=== PATIENT | male | born 1995 | race Caucasian/White ===

== ENCOUNTER 2018-01-06 15:04 | Inpatient (IN) | payer BC, OTHER ==
[~2018-01-06] VITALS: Ht 177.8 cm; Wt 59.0 kg
[2018-01-08] MEDS ORDERED: MAGNESIUM HYDROXIDE 30 ML LIQUID UDC PO PRN (11:00)
[2018-01-08] MEDS ORDERED: CLONIDINE HCL 0.1 MG TABLET PO PRN (11:00)
[2018-01-08] MEDS ORDERED: LORAZEPAM 1 MG TABLET PO PRN (11:00)
[2018-01-08] MEDS ORDERED: ONDANSETRON 4 MG/2 ML VIAL IM PRN (11:00)
[2018-01-08] MEDS ORDERED: LORAZEPAM 2 MG/1 ML VIAL IM PRN (11:00)
[2018-01-08] MEDS ORDERED: THIAMINE HCL 200 MG/2 ML VIAL IM ONE (11:00)
[2018-01-08] MEDS ORDERED: MIRALAX 17 GM POWD.PACK PO PRN (11:00)
[2018-01-08] MEDS ORDERED: LOPERAMIDE HCL 2 MG CAPSULE PO PRN ×2 (11:00)
[2018-01-08] MEDS ORDERED: MAG HYDROX/AL HYDROX/SIMETH 30 ML LIQUID UDC PO PRN (11:00)
--- NOTE | 2018-01-08 11:10 | NUR ---
Admissions Note 22 year old male admitted to [facility] for withdrawal from alcohol. Client is oriented to unit, educated about protocols and how to work TV and call light in his room. Weight: 130 pounds. Height: 5'10" CIWA: 4 Client appears anxious, clammy skin, superficial abrasion to R cheek, client stated, I pick at my skin sometimes. Dry scab on R sharma, no treatment needed, encourage client to avoid picking at site. Bilateral lung clear on auscultation, abdomen soft, non-tender, no edema noted. Clients voice is soft, he avoids eye contact. Client has NKA. Regular diet ordered. Full code status ordered. Client denies any history of seizures, but reports history of withdrawal-induced delirium. LBM was 01/07/08, medium/brown/soft. He gives verbal consent for FLU/ PNA vaccine. He gives verbal consent for HIV. Client states that he lives with his parents and younger brother. He reports 27 prior treatments, last been in a residential treatment for like 10 days, and relapse upon discharge two months ago. His longest period of sobriety is for the last four months when he was 17 y/o, cant remember exact date. Dr Dunne assessed client. Urine not collected yet. All safety measures instituted. Univeral precaution. Call light within reach. Will continue to monitor.
[2018-01-08] MEDS ORDERED: EMTR1TAB6 PO (11:14)
[2018-01-08] MEDS ORDERED: DOLU50TA PO (11:16)
[2018-01-08] MEDS: ACETAMINOPHEN 325 MG TABLET PO PRN (11:39)
--- NOTE | 2018-01-08 11:40 | NUR ---
PRN Clonidine 0.1mg PO for BP 141/86, Tylenol 650mg PO for pain on bilateral knees, ankles 6/10. Call light within reach.
[2018-01-08 12:00] VITALS: BP 129/86
[2018-01-08 12:08] LABS: BILIRUBIN,TOTAL 0.7 mg/dL (0.2-1.0); CREATININE 1.3 mg/dL (0.6-1.3); MAGNESIUM 1.9 mg/dL (1.8-2.4); POTASSIUM 3.5 mmol/L (3.5-5.1)
[2018-01-08 12:38] LABS: BASOPHILS % (AUTO) 0.4 % (0.0-2.0); EOSINOPHILS # (AUTO) 0.2 K/uL (0.0-0.7); EOSINOPHILS % (AUTO) 4.3 % (0.0-7.0); HEMOGLOBIN 15.9 g/dL (12.5-16.3); LYMPHOCYTES # (AUTO) 1.5 K/uL (20.0-40.0); LYMPHOCYTES % (AUTO) 26.9 % (20.5-51.5); MEAN CORPUSCULAR HEMOGLOBIN 30.9 uug (23.8-33.4); MEAN CORPUSCULAR HGB CONC 35 g/dL (32.5-36.3); MEAN CORPUSCULAR VOLUME 89.2 fL (73.0-96.2); MONOCYTES # (AUTO) 0.4 K/uL (2.0-10.0); MONOCYTES % (AUTO) 7.5 % (0.0-11.0); NEUTROPHILS # (AUTO) 3.3 K/uL (1.8-8.9); NEUTROPHILS % (AUTO) 60.9 % (38.5-71.5); PLATELET COUNT (AUTO) 298 K/uL (152-348); RED BLOOD CELL COUNT(AUTO) 5.16 MIL/uL (4.06-5.63); WHITE BLOOD COUNT (AUTO) 5.5 K/uL (3.6-10.2)
--- NOTE | 2018-01-08 12:40 | NUR ---
Reassess PRN Clonidine 0.1mg PO decrease BP 129/86, Tylenol 650mg pain on bilateral knees, ankles 0/10.
[2018-01-08 14:52] LABS: *AMPHETAMINE, URINE NEGATIVE (NEGATIVE); *BARBITURATE, URINE NEGATIVE (NEGATIVE); *CANNABINOID, URINE NEGATIVE (NEGATIVE); *COCCAINE, URINE POSITIVE (NEGATIVE); *OPIATE, URINE NEGATIVE (NEGATIVE); *PHENCYCLIDINE SCREEN,URINE NEGATIVE (NEGATIVE)
[2018-01-08] MEDS ORDERED: ALBU0.63 IH (15:50)
[2018-01-08] MEDS ORDERED: PATIENT MAY USE OWN MED- MD OK INH PRN (16:15)
--- NOTE | 2018-01-08 16:52 | NUR ---
PRE-ASSESSMENT: Pre-Assessment done at intake office, client is A/O x4, he presents with flat affect, anxious mood, client is wearing dirty clothes, dirt under fingernails, he appears undernourished. Client avoids eye contact, soft speech, he has difficulty staying still, keeps tapping the floor with left leg. T 98.4 , RR 18, BP 129/86 HR 104, spO2 @ 96% on RA, Pain on bilateral knees and ankles 6/10. He is fully ambulatory. He denies any allergies; he denies any withdrawal-induced seizure. PMH: Accidental opioid overdose (01/01/18), suicide attempt x 7, last been 3 weeks ago (tried to hang himself using a belt from the fun ceiling, but the belt snapped), depression, PTSD, Asthma, HIV (2013). Medications taken at home Tivicay 50mg PO daily Truvada 200/300mg 1 tab PO daily Albuterol IH PRN ( have not used it in a while) Substance history First time used at 13y/o, Alcohol (beer) 6 cans (24oz) 12% ABV or 12 cans (12oz) daily for the past two months, last used 2 (24oz) cans of beer, 2 hours before admission. Heroin $20.00 worth IV, for the past two months, last used 01/01/18 Cocaine $150.00 worth IV, smoked, for the past two months, last used 01/08/18. Methamphetamine unknown smoked, used few times a week, last used 01/08/18. Marijuana a few joints smoked, last time used 01/08/18, a couple of puffs. Protocol regarding vitals Q4H, UDS, blood work, and controlled substances discuss with client, he verbalized understanding. PCP: Akbar Gonzalez MD Addendum: 01/08/18 at 1704 by JIMMY DIANA RN wrong time
[2018-01-08 16:58] VITALS: BP 111/68
[2018-01-08] MEDS: LORAZEPAM 1 MG TABLET PO SCH ×2 (17:13→20:36)
[2018-01-08] MEDS ORDERED: ALBUTEROL SULFATE 2.5 MG/3 ML NEBU NEB PRN (18:00)
--- NOTE | 2018-01-08 19:17 | NUR ---
END OF SHIFT Endorsed client to incoming nurse, client is a/o x 4, he remained in his room, prefers dim light, he continues to present with anxious mood, flat affect, fine tremors, chills, sweats, restless legs, and decrease appetite. Adequate PO fluid intake 1182mL, void x 2. LBM 01/07/18. Client not compliant with group therapy d/t withdrawal symptoms. Last CIWA 14 @ 1600. PRN maalox 30ml PO for heartburn, Motrin for pain L side of scalp, noted effective. Call light within reach. Addendum: 01/08/18 at 1924 by JIMMY DIANA RN WRONG CLIENT
--- NOTE | 2018-01-08 19:24 | NUR ---
START OF SHIFT NOTE: Patient is 22 old male admitted for Alcohol/Beer PO, Methamphetamine smoked, Heroin via IV, Cocaine via IV, and Marijuana smoked withdrawal, continues 5 day Ativan taper with tolerated well. Patient reported past medical history: Anxiety, Depression, History of withdrawal-induced delirium, History of Past Suicide attempts x7 (3 weeks ago), PTSD, HIV (2013), Asthma. Patient reports NKA, is on Full Code, Regular Diet, Fall and Seizures Precautions. Upon endorsement, patient is in the room: patient appears diaphoretic, undernourished with red eyes. Clothes thrown on floor. Patient is alert and oriented x4. Last CIWA 14 @1712 per outgoing day shift nurse report. Patient is sad, with poor eye contact, increased anxiety, agitation, nervousness, abdominal cramps, restlessness, tremors, sweating, insomnia, and generalized body aches. Patient denies SI/HI now. PRN Clonidine 0.1 mg PO for HTN, and PRN Tylenol 650 mg PO for pain 6/10 on BLE/knee, ankles, administrated @1140 by day shift nurse, were effective per day shift nurse report. All safety measures in the place: Call light within reach, bed locked and in the lowest position, padded rails up x 2. Patient endorsed by day shift nurse, report received. Will continue to monitor closely.
--- NOTE | 2018-01-08 19:24 | NUR ---
END OF SHIFT Endorsed client to incoming nurse, client is a/o to name, place, situation, he remained in his room, client reports sensitivity to noise and light. Decreased stimuli, he continues to present with anxious mood, flat affect, fine tremors, cold/chills, moist skin, restless legs, and fatigue. Adequate PO fluid intake 806mL, void x 3, stool x 1. Client not compliant with group therapy d/t withdrawal symptoms. Last CIWA 14 @ 1600. PRN administered and noted per protocol. Call light within reach.
[2018-01-08 20:00] VITALS: BP 126/83
[2018-01-08] MEDS: diphenhydrAMINE 50 MG CAPSULE PO PRN (20:36)
--- NOTE | 2018-01-08 20:36 | NUR ---
PRN BENADRYL 50 MG 1 CAP PO ADMINISTRATION PRN Benadryl 50 mg 1 cap PO administrated for insomnia as ordered. Patient tolerated well. All needs met. Safety measures on place. Call light within reach, bed in lowest position and locked, padded rails up x2. Will continue to monitor closely.
--- NOTE | 2018-01-08 21:36 | NUR ---
RE-ASSESSMENT Patient is sleeping. RR 15. Respirations even and unlabored. PRN Benadryl 50 mg 1 cap PO administrated for insomnia @2035 was effective. All needs met. Safety measures on place. Call light within reach, bed in lowest position and locked, padded rails up bilaterally rails up bilaterally. Will continue to monitor closely.
--- NOTE | 2018-01-09 | NUR ---
VS REFUSED. COWS,CIWA DEFERRED. PATIENT IS SLEEPING. SAFETY MEASURES IN PLACE. WILL CONTINUE TO MONITOR.
[2018-01-09 04:00] VITALS: BP 99/64
[2018-01-09 04:06] LABS: *BASOS 1 % (Not Estab.); *EOS 4 % (Not Estab.); *EOS ABSOLUTE 0.3 x10E3/uL (0.0-0.4); *HCT 45.1 % (37.5-51.0); *HGB 15.2 g/dL (13.0-17.7); *IMMATURE GRANULOCYTES 0 % (Not Estab.); *LYMPHOCYTES 29 % (Not Estab.); *LYMPHOCYTES ABSOLUTE 1.7 x10E3/uL (0.7-3.1); *MCH 30.3 pg (26.6-33.0); *MCHC 33.7 g/dL (31.5-35.7); *MCV 90 fL (79-97); *MONOCYTES 9 % (Not Estab.); *MONOCYTES ABSOLUTE 0.5 x10E3/uL (0.1-0.9); *NEUTROPHILS 57 % (Not Estab.); *NEUTROPHILS ABSOLUTE 3.5 x10E3/uL (1.4-7.0); *PLT 357 x10E3/uL (150-379); *RBC 5.01 x10E6/uL (4.14-5.80); *RDW 13.7 % (12.3-15.4)
--- NOTE | 2018-01-09 06:53 | NUR ---
END OF SHIFT NOTE Endorsed 22 old male admitted for ETOH(Beer) Opioid (Heroin), Methamphetamine, Cocaine, and Marijuana withdrawal, continue 5 Day Ativan Taper with tolerated well. Patient is alert and oriented x4. Patient noted unshaven, with uncombed hair, his clothes thrown on floor. Education in safety and hygiene care provided to patient. Encouraged to independently perform hygiene care. CIWA= 12 @2000. VS refused, and CIWA deferred @0000. Last CIWA=8 @0400. Patient presented with anxiety, agitation, nervousness, depression, tremors, stomach pain, sweating, body aches, fatigue, restlessness, and insomnia. Patient denies SI/HI. PRN Benadryl administrated for insomnia @2035 was effective. Patient slept 9 hours, intake 1,796 ml, voided x3. Safe and calm environment with minimized noises was provided. Patient encouraged to increase oral fluid intake as tolerated. Patient encouraged to attend group activities. All needs met. Safety measures in the place: Call light within reach, bed in the lowest position and locked, padded rails up x2. Patient endorsed to day shift nurse.
[2018-01-09 07:06] LABS: HEPATITIS B SURFACE AG Negative (Negative)
--- NOTE | 2018-01-09 07:41 | NUR ---
Start of shift- 22 y/o male admitted for ETOH(Beer) Opioid (Heroin), Methamphetamine, Cocaine, and Marijuana withdrawal, 5 Day Ativan Taper started 01/08/18, tolerated well. PMH HIV, PTSD, asthma, anxiety, depression, heroin overdose one week ago. Pt in bed appears to be sleeping, resp even and unlabored. Patient noted unshaven, with uncombed hair, his clothes thrown on floor. Last CIWA=8 @0400. Patient denies SI/HI. PRN Benadryl administrated for insomnia @2035 was effective. Patient slept 9 hours. Patient encouraged to increase oral fluid intake as tolerated. Patient encouraged to attend group activities. NKA, FULL CODE, regular diet. Safety measures in the place: Call light within reach, bed in the lowest position and locked, padded rails up x2. Will continue to monitor.
[2018-01-09 08:00] VITALS: BP 124/75
[2018-01-09] MEDS ORDERED: TUBERCULIN,PURIF.PROT.DERIV. 5 TU/0.1 ML TEST ID ONE (09:00)
[2018-01-09] MEDS: IBUPROFEN 400 MG TABLET PO PRN (09:05)
[2018-01-09] MEDS: ONDANSETRON ODT 4 MG TAB.RAPDIS SL PRN ×2 (09:06→16:13)
[2018-01-09] MEDS: FOLIC ACID 1 MG TABLET PO SCH (09:06)
[2018-01-09] MEDS: THIAMINE HCL 100 MG TABLET PO SCH (09:06)
[2018-01-09] MEDS: MULTIVITAMINS,THERAPEUTIC TABLET PO SCH (09:06)
[2018-01-09] MEDS: TIVICAY 50 MG PO SCH (09:07)
[2018-01-09] MEDS: LORAZEPAM 1 MG TABLET PO SCH ×3 (09:07→21:54)
[2018-01-09] MEDS: TRUVADA PO SCH (09:14)
--- NOTE | 2018-01-09 09:16 | NUR ---
PRN Motrin 400 mg PO for pain #6/10 generalized body aches. Zofran 4 mg PO rapid tabs for nausea, no vomiting.
[2018-01-09] MEDS: ACETAMINOPHEN 325 MG TABLET PO PRN (10:16)
--- NOTE | 2018-01-09 10:16 | NUR ---
Reassess Zofran- pt still c/o nausea. Reassess Liza, pt still c/o pain #6/10. Not effective. Addendum: 01/09/18 at 1117 by Ariadna Madrigal RN Pt reports 2 hours after Zofran administered his nausea is better. No vomiting.
--- NOTE | 2018-01-09 10:24 | NUR ---
PRN Imodium 4 mg PO for diarrhea. Tylenol 650 mg for pain #6/10
--- NOTE | 2018-01-09 11:14 | NUR ---
Reassess Imodium, diarrhea resolved. Medication effective. Tylenol, pt states pain decreased to #5/10. Medication effective. Pt also report nausea improved. He remains nauseated but not as much #3/10. No vomiting.
[2018-01-09] MEDS: LORAZEPAM 1 MG TABLET PO PRN ×2 (12:07→16:13)
--- NOTE | 2018-01-09 12:07 | NUR ---
PRN Ativan 1 mg po for CIWA 10
[2018-01-09 12:38] VITALS: BP 119/70
--- NOTE | 2018-01-09 13:05 | NUR ---
Reassess GABBIE Sullivan now 7. Pt says he feels a little better.
[2018-01-09 13:14] LABS: *HELPER T-LYMPH MARKR(CD4)ABSO 763 /uL (359-1519); *HELPER T-LYNPH MARKER CD4)% 44.9 % (30.8-58.5)
[2018-01-09 16:00] VITALS: BP 120/66
--- NOTE | 2018-01-09 16:15 | NUR ---
PRN Zofran 4 mg fast tab PO for nausea. PRN Ativan 1 mg PO for CIWA 6
--- NOTE | 2018-01-09 17:17 | NUR ---
Reasses Michael. Pt states nausea the same, considers it mild and present.
--- NOTE | 2018-01-09 18:32 | NUR ---
End of shift- 22 y/o male admitted for ETOH (Beer) Opioid (Heroin), Methamphetamine, Cocaine, and Marijuana withdrawal, 5 Day Ativan Taper started 01/08/18, tolerated well. Last CIWA 6 @1600. PMH- HIV+, depression, anxiety, PTSD asthma, suicide attempt X7, most recently 3 weeks ago. Patient denies SI/HI. PRN medications per doctors orders with good effects. Pt showered today. Patient encouraged to increase oral fluid intake as tolerated. Patient encouraged to attend group activities. Remained isolative and withdrawn. Did not attend group therapy today. Adequate PO fluid intake 1759 ml, void X 2, BM x 1. Pt reports NKA, FULL CODE, regular diet. Safety measures in the place: Call light within reach, bed in the lowest position, locked, padded rails up x2. Will endorse to on coming shift.
--- NOTE | 2018-01-09 19:18 | NUR ---
Start of shift note Received report from day shift nurse. Pt is a 22 yo male, A+Ox4, presenting to [facility] for ETOH/Opiate/Cocaine/Meth withdrawal. Pt is presenting with Flat affect, anxiety, depressed manner, and room is messy. Pt noted with odorous smell. Pt has HX of Depression, Anxiety, and Suicide attempt which will be monitored throughout shift. Respirations even and unlabored. Will continue to monitor.
[2018-01-09 20:15] VITALS: BP 122/72
[2018-01-10 00:19] VITALS: BP 118/70
[2018-01-10 04:08] VITALS: BP 114/67
--- NOTE | 2018-01-10 06:59 | NUR ---
End of shift note Pt was noted with flat affect, anxiety, depressed manner, and messy room throughout shift. Pt remained in room majority of shift except to go smoke. Pt slept for a total of 8 HRS. No PRNs given during shift. Last CIWA: 6 @0400. Respirations even and unlabored. Will endorse to day shift nurse.
--- NOTE | 2018-01-10 07:40 | NUR ---
START OF SHIFT Endorse rcvd from ongoing nurse, client is sitting in bed, he avoids eye contact, a/o x 3, he presents with depressed mood, flat affect, tremors felt not observed, and moist skin. He reports decrease appetite, restless legs, feelings of despair, and fatigue. Encourage client to take a shower and to get out of room to increase his activity, he said, "I'll try." Client denies any SI/HI. Encourage client to attend group therapy for skills to maintain sober. Encourage client to increase PO fluid as tolerated to maintain rehydration and facilitate detox. Client had an uneventful night Ativan taper medication managing his withdrawal symptoms, client slept 8 hrs. Last CIWA 6 @ 1999. Client admitted for medically supervised withdrawal from alcohol and benzodiazepines, Third of 5 day Ativan taper, tolerating well. Call light within reach. Seizure precautions rendered. Addendum: 01/10/18 at 1514 by JIMMY DIANA RN Admitted for medically supervised withdrawal from alcohol.
[2018-01-10 08:58] VITALS: BP 120/70
[2018-01-10] MEDS: FOLIC ACID 1 MG TABLET PO SCH (09:36)
[2018-01-10] MEDS: TIVICAY 50 MG PO SCH (09:36)
[2018-01-10] MEDS: LORAZEPAM 1 MG TABLET PO SCH ×3 (09:36→21:39)
[2018-01-10] MEDS: TRUVADA PO SCH (09:36)
[2018-01-10] MEDS: MULTIVITAMINS,THERAPEUTIC TABLET PO SCH (09:36)
[2018-01-10] MEDS: THIAMINE HCL 100 MG TABLET PO SCH (09:36)
--- NOTE | 2018-01-10 09:50 | NUR ---
Client declined PNA/FLU vaccine, stating, "No, I don't want to get them, but thank you." Educated client on benefits and side effects of vaccines, but he still declined.
--- NOTE | 2018-01-10 12:15 | NUR ---
Nursing notes Client gave a white tablet (Ativan 1mg) to behavioral tech and stated, "I just found this pill under my bed, I don't know what it is and I don't want to keep it." primary nurse asked client if he did not take his dose this am, client stated, "I don't know, I thought I took all my meds, I do not try to hide my meds, that pill I just found it under the bed." Charge nurse notified.
[2018-01-10 12:20] VITALS: BP_SYST 120; BP_SYST 122; BP_DIAS 66; BP_DIAS 75
[2018-01-10] MEDS: IBUPROFEN 400 MG TABLET PO PRN (16:42)
[2018-01-10] MEDS: ACETAMINOPHEN 325 MG TABLET PO PRN (16:42)
--- NOTE | 2018-01-10 16:42 | NUR ---
PRN Motrin 400mg PO, Tylenol 650mg PO administered for generalized body aches and MERAZ 05/02. Call light within reach.
[2018-01-10 16:59] VITALS: BP 113/60
--- NOTE | 2018-01-10 17:42 | NUR ---
Reassess PRN Motrin 400mg & Tylenol 650mg effective client reports relief from generalized body aches and MERAZ 2/10, but tolerable. Call light within reach.
--- NOTE | 2018-01-10 19:00 | NUR ---
END OF SHIFT Endorsed client to incoming nurse, client is a/o x 3, client increased his ADLs, [facility] He continues to present with depressed mood, flat affect, tremors felt not observed, chills, sweats, restless legs, and decrease appetite. Adequate PO fluid intake 1565mL, void x 4, stool x 1. Client not compliant with group therapy, encouragement needed. Last CIWA 11 @ 1600. PRN Tylenol 650mg PO, Motrin 400mg PO for generalized body aches and MERAZ, noted effective. Call light within reach.
--- NOTE | 2018-01-10 19:10 | NUR ---
Start of shift note Received report from day shift nurse. Pt is a 22 yo male, A+Ox4, presenting to [facility] for ETOH/Opiate/Cocaine/Meth withdrawal. Pt still presenting with flat affect, anxiety, and depressed manner. Pt stated " im not feeling too well but i am trying my best to handle the situation". Pt has HX of Depression, Anxiety, and Suicide attempt which will be monitored throughout shift. Respirations even and unlabored. Will continue to monitor.
[2018-01-10 20:55] VITALS: BP 127/69
[2018-01-10] MEDS: diphenhydrAMINE 50 MG CAPSULE PO PRN (21:42)
--- NOTE | 2018-01-10 21:42 | NUR ---
PRN Benadryl Pt c/o inability to sleep and requested for PRN Benadryl. Medication given and tolerated well. Will reassess within 1 HR. Will continue to monitor.
--- NOTE | 2018-01-10 22:40 | NUR ---
PRN Benadryl Reassessment Medication effective. Pt is resting well in bed. No s/s of ASE noted at this time. Respirations even and unlabored. Will continue to monitor.
[2018-01-11 00:36] VITALS: BP 123/73
[2018-01-11 04:15] VITALS: BP 128/74
--- NOTE | 2018-01-11 07:00 | NUR ---
End of shift note Pt was continuously noted to have flat affect, anxiety, depressed appearance while awake, and messy room throughout shift. Pt remained in room majority of shift except to go smoke and to get food from kitchen periodically. Pt slept for a total of 7 HRS. Pt was given PRN Sneha @2. Last CIWA: 8 @0400. Respirations even and unlabored. Will endorse to day shift nurse.
--- NOTE | 2018-01-11 07:15 | NUR ---
Start of Shift Hand Stemmer received report on 22 year old male admitted on 01/08/18 for ETOH, Methamphetamine, Heroin and Cocaine detoxification. Pt endorses NKDA, full code and regular diet. Pt administered Benadryl on NOC, effective as pt slept 7 hours. Currently on a Ativan taper and tolerating well with CIWA of 8 recorded at 0400. Hand Stemmer is encountered in his room resting with eyes closed, even rise and fall of chest. Even and unlabored respirations. Sitter at bedside. Bed in low position, wheels locked and side rails up x2. Will continue to monitor, support and encourage according to plan of care. Addendum: 01/11/18 at 0913 by VIOLETA STRICKLAND RN PMH of HIV, depression, anxiety, PTSD and history of SA.
[2018-01-11 08:56] VITALS: BP 123/76
[2018-01-11] MEDS ORDERED: HYDROXYZINE PAMOATE 25 MG CAPSULE PO PRN (09:00)
[2018-01-11] MEDS ORDERED: LORAZEPAM 1 MG TABLET PO SCH (09:00)
[2018-01-11] MEDS: THIAMINE HCL 100 MG TABLET PO SCH (09:08)
[2018-01-11] MEDS: TIVICAY 50 MG PO SCH (09:08)
[2018-01-11] MEDS: TRUVADA PO SCH (09:08)
[2018-01-11] MEDS: MULTIVITAMINS,THERAPEUTIC TABLET PO SCH (09:08)
[2018-01-11] MEDS: FOLIC ACID 1 MG TABLET PO SCH (09:08)
[2018-01-11 12:30] VITALS: BP 119/67
--- NOTE | 2018-01-11 14:37 | NUR ---
Therapist prompted client about group times. Client stated he will try to go to the afternoon group if he feels well.
[2018-01-11] MEDS: GABAPENTIN 300 MG CAPSULE PO SCH ×2 (16:00→20:13)
[2018-01-11 16:30] VITALS: BP 124/73
[2018-01-11] MEDS: LORAZEPAM 1 MG TABLET PO SCH ×2 (17:19→20:13)
--- NOTE | 2018-01-11 18:59 | NUR ---
End of Shift Apple Checker provided report on 22 year old male admitted on 01/08/18 for ETOH, Methamphetamine, Heroin and Cocaine detoxification. Pt endorses NKDA, full code and regular diet. PMH of HIV, depression, anxiety, PTSD and history of SA. No PRN administered on this shift with pt making no complaints thru out shift. Currently on a Ativan taper and tolerating well with CIWA of 3 recorded [id number]. Pt has been calm, cooperative, but isolative, withdrawn and quiet. Pt makes needs known, with little peer interaction, isolating to room. Bed in low position, wheels locked and side rails up x2. Will continue to monitor, support and encourage according to plan of care.
--- NOTE | 2018-01-11 19:00 | NUR ---
Start of Shift Patient Received. Patient is in his room awake, alert, and verbally responsive. Breathing even and non labored. Patient continues on a modified 5 day Ativan taper. Per endorsement, patient is noted to be isolative to room, non-compliant with group therapy and social activities. No PRN medications administered. Last noted CIWA 3.
[2018-01-11 20:06] VITALS: BP 130/64
[2018-01-11] MEDS: diphenhydrAMINE 50 MG CAPSULE PO PRN (20:13)
[2018-01-11] MEDS: IBUPROFEN 400 MG TABLET PO PRN (20:13)
--- NOTE | 2018-01-11 20:15 | NUR ---
PRN Medication Administration Patient is noted in room verbalizing generalized body aches 6/10 and complains of insomnia. PRN Benadryl and Motrin administered with routine medications. Patient is noted to be flat, withdrawn, avoids eye contact, anxious, and restless. All needs attended to promptly. Will continue plan of care as ordered.
--- NOTE | 2018-01-11 21:20 | NUR ---
PRN Medication Reassessment Patient is in bed sleeping. Breathing even and non labored. No restlessness noted. No facial grimacing noted. PRN Motrin and Benadryl noted to be effective. Will continue to monitor.
[2018-01-12 00:06] VITALS: BP 115/71
[2018-01-12 04:00] VITALS: BP 102/68
--- NOTE | 2018-01-12 07:17 | NUR ---
End of Shift Patient is in bed sleeping but easily aroused to verbal stimuli. Breathing even and non labored. Patient is noted to be passive, flat, and isolative to his room. Patient received PRN Motrin for pain and PRN Benadryl for inability of falling asleep. Patient was noted to sleep in intervals with no complaints verbalized. Last noted CIWA 7. Patient slept a total of 9 hours. All needs attended to promptly. Will endorse to continue plan of care as ordered.
--- NOTE | 2018-01-12 07:30 | NUR ---
START OF SHIFT RECEIVED PT RESTING IN BED, A/OX4, RESPIRATIONS EVEN AND UNLABORED. PT HAS A FLAT AFFECT, SOFT SPOKEN, APPEARS WITHDRAWN. PT HAS SNACK WRAPPERS ON TABLES AND THE FLOOR IN HIS ROOM. PT REPORTS HAVING SENSITIVITY TO LIGHT, NUMBNESS AND BURNING SENSATIONS ON THE HANDS, PAIN IN THE SHOULDER, BACK, AND KNEES, RESTLESSNESS, "HAVING BROKEN SLEEP" THROUGHOUT THE NIGHT. ENCOURAGED PT TO INCREASE FLUIDS TO PROMOTE HYDRATION. SIDE RAILS UP AND PADDED, BED IS IN LOWEST POSITION. CALL LIGHT WITHIN REACH. ALL SAFETY MEASURES IN PLACE. WILL CONTINUE TO MONITOR.
[2018-01-12 08:00] VITALS: BP 106/56
[2018-01-12] MEDS ORDERED: LORAZEPAM 1 MG TABLET PO SCH (09:00)
[2018-01-12] MEDS: MULTIVITAMINS,THERAPEUTIC TABLET PO SCH (09:35)
[2018-01-12] MEDS: FOLIC ACID 1 MG TABLET PO SCH (09:35)
[2018-01-12] MEDS: IBUPROFEN 400 MG TABLET PO PRN (09:35)
--- NOTE | 2018-01-12 09:35 | NUR ---
PRN IBUPROFEN 400 MG PO PRN GIVEN FOR SHOULDER, BACK, KNEE AND ANKLE PAIN. WILL MONITOR FOR EFFECTIVENESS.
[2018-01-12] MEDS: GABAPENTIN 300 MG CAPSULE PO SCH ×3 (09:36→20:31)
[2018-01-12] MEDS: THIAMINE HCL 100 MG TABLET PO SCH (09:36)
[2018-01-12] MEDS: TRUVADA PO SCH (09:39)
[2018-01-12] MEDS: TIVICAY 50 MG PO SCH (09:39)
--- NOTE | 2018-01-12 10:35 | NUR ---
REASSESSMENT PT REPORTED IBUPROFEN EFFECTIVE FOR HIS PAIN; FROM 8/10 TO 3/10 INTERMITTENTLY.
[2018-01-12 12:00] VITALS: BP 128/69
[2018-01-12 16:00] VITALS: BP 122/60
[2018-01-12] MEDS ORDERED: HYDR-3895 PO (18:25)
[2018-01-12] MEDS ORDERED: GABA-534 PO (18:25)
[2018-01-12] MEDS ORDERED: DIPH50CA37 PO (18:25)
--- NOTE | 2018-01-12 18:58 | NUR ---
END OF SHIFT LAST CIWA 6 @1600. PT INFORMED BY ABOUT POSITIVE RPR REACTIVE RESULT. PCN IM INJ GIVEN ORDERED AND GIVEN. TYLENOL 650 MG PO PRN GIVEN FOR JOINT PAIN IN AM; MED EFFECTIVE. PT PARTICIPATED IN ALL GROUPS TODAY. PT IS TO BE DISCHARGED TOMORROW. ALL SAFETY MEASURES IN PLACE. WILL GIVE PERTINENT INFO AND ENDORSEMENT TO [employer] SUPERVISOR NURSE.
--- NOTE | 2018-01-12 19:30 | NUR ---
Start of shift Notes Received 22 y/o male px lying on bed in fowlers position watching TV. Px is admitted for medically supervised withdrawal of ETOH. Px appears under nourished. Px has poor eye contact. Px stated that his anxiety is 2/10 and body aches of 4/10 and verbalized "I can manage, I don't need medicine for pain, I am ready for tomorrow". Px is to be D/C tomorrow 01/13/2018. Last reported CIWA was 6. Px completed 5 day Ativan taper and tolerated well. Bed on lowest position, side rails up 2x and call light within reach. We'll continue to monitor.
[2018-01-12 20:00] VITALS: BP 117/64
[2018-01-12] MEDS ORDERED: TRAZODONE 50 MG TABLET PO ONE (21:00)
[2018-01-12] MEDS ORDERED: TRAZODONE 50 MG TABLET PO SCH (21:00)
[2018-01-13] VITALS: BP 115/65
[2018-01-13 04:00] VITALS: BP 112/63
--- NOTE | 2018-01-13 04:00 | NUR ---
CIWA deferred CIWA deferred at 0000 and at 0400 due to the px is asleep, to assess if the px is awake per doctor's order. We'll continue to monitor.
--- NOTE | 2018-01-13 07:11 | NUR ---
End of shift Notes During the shift, No PRN meds given. Last CIWA 5. Px's oral intake of 2 L, voided 4x, BM 2x. Slept for 7 hours. At 0630, px is asleep on bed on right side lying position. Px is to be D/C today 01/13/2018. Bed on lowest position, side rails up 2x and call light within reach. We'll continue to monitor. Px endorsed to AM shift nurse.
--- NOTE | 2018-01-13 07:46 | NUR ---
START OF SHIFT RECEIVED PT A/OX4, RESPIRATIONS EVEN AND UNLABORED. PT IS TO BE DISCHARGED TODAY. PT STATES HE IS READY TO CONTINUE TREATMENT. ALL SAFETY MEASURES IN PLACE. CALL LIGHT WITHIN REACH. WILL CONTINUE TO MONITOR.
[2018-01-13 08:00] VITALS: BP 125/75
[2018-01-13] MEDS: THIAMINE HCL 100 MG TABLET PO SCH (08:34)
[2018-01-13] MEDS: FOLIC ACID 1 MG TABLET PO SCH (08:34)
[2018-01-13] MEDS: MULTIVITAMINS,THERAPEUTIC TABLET PO SCH (08:34)
[2018-01-13] MEDS: GABAPENTIN 300 MG CAPSULE PO SCH (08:34)
[2018-01-13] MEDS: TIVICAY 50 MG PO SCH (08:34)
[2018-01-13] MEDS: TRUVADA PO SCH (08:34)
--- NOTE | 2018-01-13 09:27 | NUR ---
DISCHARGE NOTE PT IS A/OX4, RESPIRATIONS EVEN AND UNLABORED, IN STABLE CONDITION, VVS. PT D/C INSTRUCTIONS GIVEN AND PT VERBALIZED UNDERSTANDING. PT LEFT THE BUILDING AT 0927 ON 01/13/18 WITH DISCHARGE PAPERWORK, ALL BELONGINGS, HOME MEDS. PRESCRIPTIONS HAVE BEEN SENT ELECTRONICALLY TO PHARMACY. PT HAS BEEN PICKED UP BY "[employer]" [employer].
== END 2018-01-13 09:27 | disposition other institution (70) | DRG 895 ==
LOC: EDSEX → SRC 01-08 10:22
PROVIDERS: ADMIT Internal Medicine; ATTEND Internal Medicine
PROC: HZ2ZZZZ Detoxification Services for Substance Abuse Treatment (ICD-10-PCS; principal; 2018-01-08)
PROC: HZ31ZZZ Individual Counseling for Substance Abuse Treatment, Behavioral (ICD-10-PCS; 2018-01-11)
DX: F10.230 Alcohol dependence with withdrawal, uncomplicated (principal); F33.2 Major depressive disorder, recurrent severe without psychotic features; F14.23 Cocaine dependence with withdrawal; Y90.1 Blood alcohol level of 20-39 mg/100 ml; J45.20 Mild intermittent asthma, uncomplicated; Z82.49 Family history of ischemic heart disease and other diseases of the circulatory system; Z83.3 Family history of diabetes mellitus; Z81.1 Family history of alcohol abuse and dependence; Z91.5 Personal history of self-harm; Z59.1 Inadequate housing; Z91.89 Other specified personal risk factors, not elsewhere classified; F15.10 Other stimulant abuse, uncomplicated; F43.10 Post-traumatic stress disorder, unspecified; F11.10 Opioid abuse, uncomplicated; G47.00 Insomnia, unspecified; F17.210 Nicotine dependence, cigarettes, uncomplicated
CPT/HCPCS: 36415; 80307; 80353; 83735; 85025; 86361; 86580; 86592; 86705; 86803; 87340; 87806; A4663; G0480; J3411; Q0162; Q0163

== ENCOUNTER 2018-03-07 09:49 | Inpatient (IN) | payer BC, OTHER ==
[~2018-03-07] VITALS: Ht 180.3 cm; Wt 59.0 kg
[~2018-03-07 09:49] MED LIST: ALBU0.63 IH; DIPH50CA37 PO; DOLU50TA PO; EMTR1TAB6 PO; GABA-534 PO; HYDR-3895 PO
--- NOTE | 2018-03-07 12:30 | NUR ---
PRE-ASSESSMENT: assessed pt in intake office, pt is alert oriented and in stable condition, explained unit protocols and procedures and pt verbalized understanding. pt is able to sign consent and is appropriate for unit at this time
[2018-03-07] MEDS ORDERED: LORAZEPAM 2 MG/1 ML VIAL IM PRN (13:00)
[2018-03-07] MEDS ORDERED: diphenhydrAMINE 50 MG CAPSULE PO PRN (13:00)
[2018-03-07] MEDS ORDERED: MAG HYDROX/AL HYDROX/SIMETH 30 ML LIQUID UDC PO PRN (13:00)
[2018-03-07] MEDS ORDERED: ACETAMINOPHEN 325 MG TABLET PO PRN (13:00)
[2018-03-07] MEDS ORDERED: MAGNESIUM HYDROXIDE 30 ML LIQUID UDC PO PRN (13:00)
[2018-03-07] MEDS ORDERED: MIRALAX 17 GM POWD.PACK PO PRN (13:00)
[2018-03-07] MEDS ORDERED: LOPERAMIDE HCL 2 MG CAPSULE PO PRN ×2 (13:00)
[2018-03-07] MEDS ORDERED: ONDANSETRON 4 MG/2 ML VIAL IM PRN (13:00)
[2018-03-07] MEDS ORDERED: LORAZEPAM 1 MG TABLET PO PRN ×2 (13:00)
[2018-03-07] MEDS ORDERED: CLONIDINE HCL 0.1 MG TABLET PO PRN (13:00)
[2018-03-07] MEDS ORDERED: DICYCLOMINE HCL 20 MG TABLET PO PRN (13:00)
--- NOTE | 2018-03-07 13:00 | NUR ---
ADMISSION NOTE: Patient arrived to unit at 1300, patients body search completed by male intake staff, pt appears disheveled. contraband was found on person by male staff (crystal pipe) was found in pt's hair given to RN and was disposed of. body assessment completed, patients skin is intact, no bruising, breakdown or discoloration was noted. patient does have slight swelling + 1 on bilateral feet. patient is 5 feet 11 inches and weights 130 lbs. patient was oriented to unit and to room, education religious education teacher light use was provided. seizure precautions all in place. patient reports NKA. patient reports he is here to detox off of: 1. etoh verbalizes he drinks 6-24 beers daily , last use was prior to admission 2. crack cocaine smokes about 100-200 dollars a day , last use was prior to admission 3. cannabis smokes daily unknown amount, last use was today and verbalized he smoked a couple bowls pt verbalized he intermittently uses heroin and adderall but its not his substance of choice last use was 5-6 days ago. pt verbalized he was sober for about 33 days after going to treatment to [facility]. pt has extensive treatment admissions but cannot recall them all. pt is mildly intoxicated and not in withdrawal at this time. pt verbalized he does not have a PCP. Pt has not provided UDS and was assessed and examined by Dr. Dunne in intake office.
[2018-03-07] MEDS ORDERED: EMTR1TAB13 PO (13:17)
[2018-03-07] MEDS ORDERED: DOLU50TA PO (13:17)
[2018-03-07] MEDS: THIAMINE HCL 100 MG TABLET PO SCH (14:00)
[2018-03-07 16:41] LABS: BASOPHILS % (AUTO) 0.5 % (0.0-2.0); EOSINOPHILS # (AUTO) 0.2 K/uL (0.0-0.7); EOSINOPHILS % (AUTO) 2.6 % (0.0-7.0); HEMATOCRIT 43.9 % (36.7-47.1); LYMPHOCYTES # (AUTO) 1.9 K/uL (20.0-40.0); MEAN CORPUSCULAR HEMOGLOBIN 30.4 uug (23.8-33.4); MEAN CORPUSCULAR HGB CONC 34 g/dL (32.5-36.3); MEAN CORPUSCULAR VOLUME 89.3 fL (73.0-96.2); MONOCYTES # (AUTO) 0.8 K/uL (2.0-10.0); MONOCYTES % (AUTO) 8.5 % (0.0-11.0); NEUTROPHILS # (AUTO) 6.2 K/uL (1.8-8.9); NEUTROPHILS % (AUTO) 67.4 % (38.5-71.5); PLATELET COUNT (AUTO) 370 K/uL (152-348); RED BLOOD CELL COUNT(AUTO) 4.92 MIL/uL (4.06-5.63); WHITE BLOOD COUNT (AUTO) 9.1 K/uL (3.6-10.2)
[2018-03-07 16:42] VITALS: BP 112/60
[2018-03-07 16:57] LABS: ALANINE AMINOTRANSFERASE 32 U/L (16-63); ALKALINE PHOSPHATASE 74 U/L (50-136); AMYLASE 59 U/L (25-115); ASPARTATE AMINOTRANSFERASE 56 U/L (15-37); BILIRUBIN,TOTAL 0.3 mg/dL (0.2-1.0); CARBON DIOXIDE 27 mmol/L (21-32); CHLORIDE 104 mmol/L (98-107); CREATININE 1.2 mg/dL (0.6-1.3); GLUCOSE 92 mg/dL (74-106); MAGNESIUM 1.9 mg/dL (1.8-2.4); POTASSIUM 3.9 mmol/L (3.5-5.1); TOTAL PROTEIN, SERUM 7.4 g/dL (6.4-8.2); UREA NITROGEN, BLOOD 7 mg/dL (7-18)
[2018-03-07 17:03] LABS: ETHANOL < 3 MG/DL (0-0)
[2018-03-07 18:35] LABS: *AMPHETAMINE, URINE NEGATIVE (NEGATIVE); *BARBITURATE, URINE NEGATIVE (NEGATIVE); *CANNABINOID, URINE POSITIVE (NEGATIVE); *COCCAINE, URINE POSITIVE (NEGATIVE); *OPIATE, URINE NEGATIVE (NEGATIVE); *PHENCYCLIDINE SCREEN,URINE NEGATIVE (NEGATIVE)
--- NOTE | 2018-03-07 19:13 | NUR ---
end of shift note: pt provided urine around towards end of the shift and was positive for cannabis and cocaine. MRSA was collected and results pending. last ciwa 5. pt is admitted for polysubstance withdrawal/dependence mainly crack cocaine and etoh. pt has not exhibited withdrawals symptoms at this time. pt will start ativan taper at 2100. will endorse pt to shift boss nurse
--- NOTE | 2018-03-07 19:30 | NUR ---
START OF SHIFT Patient is a 22-year-old male admitted today for ETOH (beer) withdrawal with concurrent cocaine use. Patient is scheduled to start a 5-day Ativan taper this evening. Last reported CIWA score was 5, per day shift nurse. Patient received no PRN medications since time of admission. Upon assessment, patient appears anxious and quiet. Patient reports back pain and right leg pain 8/10 on pain scale. Patient reports intermittent nausea as well as headache 5/10. Patient is on fall and seizure precautions with no history of seizure. Safety measures in place, side rails up x2, bed locked in low position, call light within reach. Will continue to monitor.
[2018-03-07 20:00] VITALS: BP 132/82
[2018-03-07] MEDS: METHOCARBAMOL 750 MG TABLET PO PRN (20:53)
--- NOTE | 2018-03-07 20:53 | NUR ---
PRN ROBAXIN Patient reports back and right leg pain 8/. PRN Robaxin given PO. Safety measures in place, call light within reach. Will monitor for effectiveness.
[2018-03-07] MEDS: ONDANSETRON ODT 4 MG TAB.RAPDIS SL PRN (20:57)
--- NOTE | 2018-03-07 20:57 | NUR ---
PRN ZOFRAN Patient reports nausea; PRN Zofran given SL. Safety measures in place, call light within reach. Will monitor for effectiveness.
[2018-03-07] MEDS ORDERED: LORAZEPAM 1 MG TABLET PO SCH (21:00)
--- NOTE | 2018-03-07 21:27 | NUR ---
PRN ZOFRAN REASSESSMENT Patient reports that nausea has improved. PRN Zofran effective. Safety measures in place, call light within reach. Will continue to monitor.
--- NOTE | 2018-03-07 21:53 | NUR ---
PRN ROBAXIN REASSESSMENT Patient reports that pain has improved "a little" but "I can still feel it." PRN Robaxin mildly effective. Safety measures in place, side rails up x2, bed locked in low position, call light within reach. Will continue to monitor.
[2018-03-07] MEDS ORDERED: THIAMINE HCL 200 MG/2 ML VIAL ONE (22:22)
[2018-03-08] VITALS: BP 124/76
--- NOTE | 2018-03-08 | NUR ---
CIWA DEFERRED CIWA deferred due to patient sleeping; to be assessed and scored while patient is awake. Respirations are even and unlabored, 16/min. Safety measures in place, side rails up x2, bed locked in low position, call light within reach. Will continue to monitor.
[2018-03-08 04:00] VITALS: BP 106/65
--- NOTE | 2018-03-08 04:00 | NUR ---
CIWA DEFERRED CIWA deferred again at this time due to patient being asleep; to be assessed and scored while patient is awake, per protocol. Respirations are even and unlabored, 16/min. Safety measures in place, side rails up x2, bed locked in low position, call light within reach. Will continue to monitor.
--- NOTE | 2018-03-08 07:00 | NUR ---
END OF SHIFT Patient is a 22-year-old male admitted yesterday 03/07/18 for ETOH (beer) withdrawal with concurrent cocaine use. Patient has started a 5-day Ativan taper last night, tolerating well. Last CIWA score was 8. Patient received PRN Zofran SL and PRN Robaxin PO; both were effective. Patient slept for 7 hours, total intake of 595mL, void x1, stool x1. Patient is on fall and seizure precautions with no history of seizure. Safety measures in place, side rails up x2, bed locked in low position, call light within reach. Will endorse to day shift.
--- NOTE | 2018-03-08 07:30 | NUR ---
start of shift note: received pt from sludge control attendant nurse,pt is in stable condition no s/s of pain or discomfort at this time.pt is admitted to [facility] for polysubstance abuse/withdrawal. pt is tolerating ativan taper well. No A/R noted. will continue to monitor pt for any changes and continue to meet pt's needs
[2018-03-08 09:00] VITALS: BP 117/65
[2018-03-08] MEDS ORDERED: TUBERCULIN,PURIF.PROT.DERIV. 5 TU/0.1 ML TEST ID ONE (09:00)
[2018-03-08] MEDS ORDERED: PATIENT MAY USE OWN MED- MD OK PO SCH (09:00)
[2018-03-08] MEDS: DESCOVY PO SCH (09:35)
[2018-03-08] MEDS: IBUPROFEN 400 MG TABLET PO PRN ×2 (09:36→20:40)
[2018-03-08] MEDS: FOLIC ACID 1 MG TABLET PO SCH (09:36)
[2018-03-08] MEDS: THIAMINE HCL 100 MG TABLET PO SCH (09:36)
[2018-03-08] MEDS: MULTIVITAMINS,THERAPEUTIC TABLET PO SCH (09:36)
[2018-03-08] MEDS: LORAZEPAM 1 MG TABLET PO SCH ×3 (09:36→20:41)
[2018-03-08] MEDS: METHOCARBAMOL 750 MG TABLET PO PRN ×2 (09:36→20:41)
--- NOTE | 2018-03-08 09:36 | NUR ---
PRN administration: pt with complaints of leg and back pain, PRN motrin and robaxin was administered, pain level 07/02, will re-assess effectiveness of medication
--- NOTE | 2018-03-08 10:36 | NUR ---
prn re-assessment: pt verbalized robaxin and motrin are effective, pt is laying in bed relaxed.
[2018-03-08 12:55] VITALS: BP 123/68
[2018-03-08 17:35] VITALS: BP 125/67
--- NOTE | 2018-03-08 18:50 | NUR ---
end of shift note: pt is in stable condition, medically supervised withdrawing from polysubstance. pt received a TB skin no A/R noted at this time. pt is on an ativan taper without A/R noted. pt's last ciwa 9. pt with increased appetite and was able to shower today. will endorse pt to cook night nurse.
--- NOTE | 2018-03-08 19:30 | NUR ---
START OF SHIFT Received 22 year old male patient admitted on 03/07/18 for ETOH, Crack, Heroin, Cannabis and Adderall withdrawal. Pt is alert and oriented x4. Pt noted to be anxious, irritable, agitated and withdrawn. Pt complains of lower bilateral leg and back pain 5/10. Per endorsement, pt received PRN Robaxin and Motrin. He continues on a 5 day Ativan taper and is tolerating well. Last CIWA: 9 at 1600. Breathing is even and unlabored, safety measures in place. Pt prefers bed in high position, explained to pt d/t safety, bed is to be kept on low position, pt refused. Will continue to monitor.
--- NOTE | 2018-03-08 19:30 | NUR ---
END OF SHIFT Received 22 year old male patient admitted on 03/07/18 for ETOH, Crack, Heroin, Cannabis and Adderall withdrawal. Pt is alert and oriented x4. Pt noted to be anxious, irritable, agitated and withdrawn. Pt complains of lower bilateral leg and back pain 04/01. Per endorsement, pt received PRN Robaxin and Motrin. He continues on a 5 day Ativan taper and is tolerating well. Last CIWA: 9 at 1600. Breathing is even and unlabored, safety measures in place. Pt prefers bed in high position, explained to pt d/t safety, bed is to be kept on low position, pt refused. Will continue to monitor. Addendum: 03/09/18 at 0122 by SEBASTIEN HAIR RN ERROR IN CHARTING. START OF SHIFT NOTE, NOT END OF SHIFT.
[2018-03-08 20:00] VITALS: BP 126/74
--- NOTE | 2018-03-08 20:21 | NUR ---
PRN MOTRIN/ROBAXIN Pt complains of pain in back and legs. PRN Motrin and Robaxin administered as ordered. Safety measures in place. Will monitor effectiveness.
--- NOTE | 2018-03-08 21:21 | NUR ---
PRN REASSESSMENT PRN medications effective. Pt lying in bed with eyes closed noted to be asleep. Breathing is even and unlabored, safety measures in place. Will continue to monitor.
--- NOTE | 2018-03-09 | NUR ---
VITALS REFUSED, CIWA DEFERRED 0000 vitals refused. CIWA deferred d/t pt lying in bed with eyes closed noted to be asleep. Breathing even and unlabored, safety measures in place. Will monitor.
--- NOTE | 2018-03-09 03:14 | NUR ---
PRN ATIVAN Pt noted with anxiety, agitation, restlessness and fidgety behavior. CIWA:9. PRN Ativan administered as ordered. Will monitor effectiveness.
[2018-03-09 04:00] VITALS: BP 102/56
[2018-03-09 04:08] LABS: *BASOS 0 % (Not Estab.); *EOS 3 % (Not Estab.); *EOS ABSOLUTE 0.3 x10E3/uL (0.0-0.4); *HCT 45.8 % (37.5-51.0); *HGB 14.7 g/dL (13.0-17.7); *IMMATURE GRANULOCYTES 0 % (Not Estab.); *LYMPHOCYTES 23 % (Not Estab.); *LYMPHOCYTES ABSOLUTE 2.1 x10E3/uL (0.7-3.1); *MCH 30.6 pg (26.6-33.0); *MCHC 32.1 g/dL (31.5-35.7); *MCV 95 fL (79-97); *MONOCYTES 6 % (Not Estab.); *MONOCYTES ABSOLUTE 0.6 x10E3/uL (0.1-0.9); *NEUTROPHILS 68 % (Not Estab.); *NEUTROPHILS ABSOLUTE 6.2 x10E3/uL (1.4-7.0); *PLT 390 x10E3/uL (150-379); *RBC 4.81 x10E6/uL (4.14-5.80); *RDW 13.2 % (12.3-15.4); *WBC 9.1 x10E3/uL (3.4-10.8)
--- NOTE | 2018-03-09 04:14 | NUR ---
PRN ATIVAN REASSESSMENT PRN medication effective. Pt is lying in bed with eyes closed noted to be asleep. Breathing is even and unlabored, safety measures in place. Will continue to monitor.
--- NOTE | 2018-03-09 07:11 | NUR ---
END OF SHIFT Pt is a 22 year old male patient admitted on 03/07/18 for ETOH, Crack, Heroin, Cannabis and Adderall withdrawal. Pt remains alert and oriented x4. Pt was noted to be anxious, irritable, agitated and withdrawn during the shift. At 2020 he received PRN Motrin and Robaxin for back pain and leg pain. At 313 he received PRN Ativan 1 mg for CIWA:9. He slept a total of 7 hrs, Intake: 1200mL, Void: x2, BM:0, CIWA:9 at 0300. He continues on a 5 day Ativan taper and is tolerating well. Breathing is even and unlabored, safety measures in place. Endorsed to AM shift.
--- NOTE | 2018-03-09 07:26 | NUR ---
Start of Shift Notes: Patient is a 22 year old male admitted for ETOH withdrawal. Placed on a 5-day Ativan taper as ordered. Received patient in his room. Laying in bed with eyes closed. Breathing even and unlabored. No SOB noted. Arousable to name and touch. Appears drowsy upon waking. Room is messy and patient appears disheveled. Encouraged maintenance of personal hygiene and space. Educated patient on his current plan of care for the day and his medication regimen. Encouraged oral fluid intake and encouraged group participation to learn new skills to prevent relapse. PRN Ativan, Motrin and Robaxin given during the night. Last CIWA 9. Slept for 7 hours. Will continue to monitor closely.
[2018-03-09 08:00] VITALS: BP 142/93
[2018-03-09] MEDS: FOLIC ACID 1 MG TABLET PO SCH (08:07)
[2018-03-09] MEDS: LORAZEPAM 1 MG TABLET PO SCH ×3 (08:07→20:40)
[2018-03-09] MEDS: THIAMINE HCL 100 MG TABLET PO SCH (08:07)
[2018-03-09] MEDS: MULTIVITAMINS,THERAPEUTIC TABLET PO SCH (08:07)
[2018-03-09] MEDS: DESCOVY PO SCH (08:08)
--- NOTE | 2018-03-09 08:09 | NUR ---
MD Communication: CIWA score Notified Dr. Dunne of patient's CIWA score of 23. Per MD, he will come and see the patient today and continue with all current meds for now and to monitor the patient closely.
--- NOTE | 2018-03-09 08:09 | NUR ---
Zofran 4 mg SL/Clonidine 0.1mg PO given: Patient noted with x 2 episodes of vomiting at the smoking patio as witnessed by MANAGER PROVIDER RELATIONS escorting the patient. Patient was immediately brought up to the unit. BP 142/93, Pulse. 99. Patient states "I just got sick all of a sudden." Denies any complains of headache, dizziness, chest pain or blurred vision. Patient was noted with gross tremors, anxiety/agitation and sweating. Medicated patient with Clonidine 0.1mg PO and Zofran 4 mg SL as ordered. Will monitor for effectiveness.
[2018-03-09 12:00] VITALS: BP 97/56
[2018-03-09 12:07] LABS: HEPATITIS B SURFACE AG Negative (Negative)
[2018-03-09 16:00] VITALS: BP 116/71
[2018-03-09] MEDS ORDERED: LORAZEPAM 1 MG TABLET PO ONE (17:00)
[2018-03-09] MEDS ORDERED: PROPRANOLOL HCL 20 MG TABLET PO ONE (17:00)
[2018-03-09] MEDS: METHOCARBAMOL 750 MG TABLET PO PRN (17:07)
--- NOTE | 2018-03-09 17:07 | NUR ---
OT Ativan 2 mg PO/OT Propranolol 20 mg PO/Robaxin 750 mg PO given: Patient noted with complains of having a severe anxiety leading to a panic attack. Also complains of 6/10 generalized aching related to withdrawal symptoms. Patient was encouraged to verbalize his feelings and concerns. Patient verbalizes "I'm just worried about a whole bunch of shit going through my head." Patient was redirected and utilized progressive muscle relaxation and encourage diversional activities to alleviate anxiety but did not help. Notified MD Dunne with new orders entered. Patient's BP 116/71, Pulse 99. Medicated patient with OT Ativan 2 mg PO, OT Propranolol 20 mg PO and Robaxin 750 mg PO as ordered. Will monitor for effectiveness.
--- NOTE | 2018-03-09 18:07 | NUR ---
Re-assessment: Ativan/Propranolol/Robaxin Patient verbalizes that he feels more calm and at ease. PL is now 01/02. He states that meds that were given to him was effective.
--- NOTE | 2018-03-09 19:03 | NUR ---
End of Shift Notes: Patient continues to be on 5-day Ativan taper to manage withdrawal symptoms related to ETOH. VS monitored closely. Noted with BP elevated at 0800 of 143/92, requiring patient to be medicated with Clonidine 0.1mg with help after 1 hour. Withdrawal symptoms were closely monitored. Initial CIWA 23, patient presented with anxiety/agitation, nausea, vomiting, sweating, gross tremors, and fatigue. Medicated patient with Zofran 4 mg IM at 0809 due to x 2 episodes of vomiting with help after 30 minutes. At 1707, patient was noted with complains of anxiety leading to a panic attack. Notified Dr. Dunne and Ativan 2 mg PO, Propranolol 20 mg PO and Robaxin 750 mg PO was given as ordered with help after 1 hour. Last CIWA 14. Per patient, Ativan has been effective in reducing his withdrawal symptoms. Patient was unable to participate in group and activities due to his withdrawal symptoms. All needs met and attended. Will continue to monitor closely.
--- NOTE | 2018-03-09 19:30 | NUR ---
START OF SHIFT Received 22 year old male patient admitted on 03/07/18 for ETOH, crack cocaine, Heroin, Cannabis and Adderall withdrawal. Pt is alert and oriented x4. Pt noted to be anxious, restless, agitated, withdrawn and isolative to his room. Per endorsement, pt received PRN Zofran IM and Robaxin. He also received a one time order of Ativan and Propranolol for anxiety/panic attack. Last CIWA:14 at 1600. Breathing is even and unlabored, safety measures in place. Will monitor.
[2018-03-09 20:00] VITALS: BP 105/60
--- NOTE | 2018-03-10 | NUR ---
VITALS REFUSED, CIWA DEFERRED 0000 vitals refused. CIWA deferred d/t pt lying in bed with eyes closed noted to be asleep. Breathing is even and unlabored, safety measures in place. Will monitor.
--- NOTE | 2018-03-10 04:00 | NUR ---
VITALS REFUSED, CIWA DEFERRED 0400 vitals refused. CIWA deferred d/t pt lying in bed with eyes closed noted to be asleep. Breathing is even and unlabored, safety measures in place. Will continue to monitor.
--- NOTE | 2018-03-10 07:00 | NUR ---
END OF SHIFT Pt is a 22 year old male patient admitted on 03/07/18 for ETOH, crack cocaine, Heroin, Cannabis and Adderall withdrawal. Pt remains alert and oriented x4. Pt was noted to be anxious, restless, agitated, withdrawn and isolative to his room during the shift. He did not receive or request PRN medications. He slept a total of 9 hrs, Intake: 600mL, Void: x1, BM:0, CIWA:10 at 2000. Breathing is even and unlabored, safety measures in place. Endorsed to AM shift.
--- NOTE | 2018-03-10 07:47 | NUR ---
Start of shift note; Received report from night nurse. Patient is a 22 year old male admitted on 03/07/18 for ETOH withdrawals. Patient is AOX4, complaining of muscle aches, diaphoresis, headache, tremors to touch. Educated patient regarding the importance of compliance to treatment and medication regime. Encouraged patient to participate in group therapy and activities and to verbalize feelings. All safety measures secured. Will continue to monitor patient.
[2018-03-10 08:00] VITALS: BP 110/63
[2018-03-10] MEDS: DESCOVY PO SCH (08:33)
[2018-03-10] MEDS: FOLIC ACID 1 MG TABLET PO SCH (08:33)
[2018-03-10] MEDS: MULTIVITAMINS,THERAPEUTIC TABLET PO SCH (08:33)
[2018-03-10] MEDS: LORAZEPAM 1 MG TABLET PO SCH ×2 (08:33→20:18)
[2018-03-10] MEDS: THIAMINE HCL 100 MG TABLET PO SCH (08:33)
[2018-03-10 12:00] VITALS: BP 106/66
[2018-03-10] MEDS ORDERED: CLON0.1T14 PO (12:37)
[2018-03-10] MEDS ORDERED: IBUP-1953 PO (12:37)
[2018-03-10] MEDS ORDERED: DIPH50CA37 PO (12:37)
[2018-03-10 15:08] LABS: *HELPER T-LYMPH MARKR(CD4)ABSO 922 /uL (359-1519); *HELPER T-LYNPH MARKER CD4)% 43.9 % (30.8-58.5)
[2018-03-10 16:00] VITALS: BP 117/85
--- NOTE | 2018-03-10 18:40 | NUR ---
End of shift note; Patient is AOX4, presented with tremors, complaining of fatigue, agitation and irritability. Patient remained compliant with treatment plan and medication regime. Medications were effective in reducing withdrawal symptoms. Patient's last CIWA score is 8 at 1600. No PRN medications given. All safety measures secured. Met all needs.
--- NOTE | 2018-03-10 19:00 | NUR ---
Start of Shift Patient Received. Patient is noted in bed sleeping. Breathing even and non labored. Per endorsement, patient continues on a modified Ativan taper. Patient has been noted to be isolative to room and non compliant with group and social meetings. No PRN Medications administered. Last noted CIWA 8. All needs attended to promptly. Will continue to monitor.
[2018-03-10 20:13] VITALS: BP 122/66
[2018-03-10] MEDS: METHOCARBAMOL 750 MG TABLET PO PRN (20:18)
--- NOTE | 2018-03-10 20:20 | NUR ---
PRN Medication Administration Patient is verbalizing increased body aches. PRN Robaxin administered with routine medications. will continue to monitor.
--- NOTE | 2018-03-10 21:20 | NUR ---
PRN Medication Reassessment patient is noted in bed sleeping. Breathing even and non labored. No signs of restlessness or discomfort noted. PRN Robaxin noted to be effective. Will continue to monitor.
[2018-03-11 00:12] VITALS: BP 103/59
[2018-03-11 04:25] VITALS: BP 100/55
--- NOTE | 2018-03-11 07:20 | NUR ---
End of Shift Patient is in bed sleeping. Breathing even and non labored. No signs of restlessness or discomfort noted. Patient continues on a modified Ativan taper. Patient continues to isolative to room and non compliant with group and social activities. PRN Robaxin administered with medication noted to be effective. Last noted CIWA 10. Patient slept a total of 9 hours. All needs attended to promptly. Will endorse to continue plan of care as ordered.
--- NOTE | 2018-03-11 07:30 | NUR ---
START OF SHIFT Pt 22 y/o male admitted for polysubstance abuse / withdrawal. Pt received in room on bed with eyes closed resting, but easily arousable to name. Pt alert and oriented to name, place, and time. Perrla. Skin warm and moist to touch. Respirations even and unlabored. Bilateral hand tremors noted. Pt appears disheveled and unkempt. Empty water bottles scattered throughout the room. Encouraged to maintain hygiene. Height of bed elevated. Encouraged pt to have bed on lowest position and lowered the bed on the lowest position, but pt elevated the bed again. It was reported that pt slept for 9 hours last night. Last reported ciwa=10@2100. Pt is on a 5 day ativan taper and is on day 5. Siderails x2 up for safety. Call light within reach.
[2018-03-11 08:00] VITALS: BP 113/61
[2018-03-11] MEDS: THIAMINE HCL 100 MG TABLET PO SCH (08:41)
[2018-03-11] MEDS: FOLIC ACID 1 MG TABLET PO SCH (08:41)
[2018-03-11] MEDS: MULTIVITAMINS,THERAPEUTIC TABLET PO SCH (08:41)
[2018-03-11] MEDS: METHOCARBAMOL 750 MG TABLET PO PRN ×2 (08:41→20:53)
[2018-03-11] MEDS: DESCOVY PO SCH (08:41)
--- NOTE | 2018-03-11 08:44 | NUR ---
PRN Pt states has body aches 7/10. Robaxin po prn per MD order given and tolerated well.
[2018-03-11] MEDS ORDERED: LORAZEPAM 1 MG TABLET PO SCH (09:00)
--- NOTE | 2018-03-11 09:44 | NUR ---
POLI SALCEDO Pt observed walking the unit in the hallways. Pt states aches 01/02.
[2018-03-11 12:25] VITALS: BP 115/83
[2018-03-11 16:00] VITALS: BP 115/58
--- NOTE | 2018-03-11 18:25 | NUR ---
END OF SHIFT Pt 22 y/o male admitted for polysubstance abuse / withdrawal. Pt alert and oriented to name, place, and time. Perrla. Skin warm and moist to touch. Respirations even and unlabored. Bilateral hand tremors noted. Pt appears disheveled and unkempt. Clothes scattered throughout the room. Encouraged to maintain hygiene. Pt still raising the elevation of the bed, even after education. Pt observed mostly isolative to room throughout the day. Pt attended group activity. Pt was seen by MD today. Pt medication compliant and tolerated well. No ASE noted. Ciwas=10@0800, 5@1200, and 5@1600. Pt is on a 5 day ativan taper and is on day 5. Side rails x2 up for safety. Call light within reach.
--- NOTE | 2018-03-11 19:15 | NUR ---
Start of Shift Note: Received patient from day shift nurse. Patient is a 22 y.o male admitted on 03/07/18 for medically supervised withdrawal from ETOH. Patient is alert & oriented x4. Patient presented with a blunt affect & anxious/irritable mood. Pt presented with moist/clammy skin & reports nausea. No hand tremors noted. Pt completed 5-day Ativan taper and is scheduled to be discharge tomorrow. Last CIWA 5. Pt received PRN Robaxin during day shift and was effective per report. Pt compliant with medications and treatment plan. Educated patient of current plan of care. Will continue to monitor patient.
[2018-03-11 20:00] VITALS: BP 123/75
[2018-03-11] MEDS: ONDANSETRON ODT 4 MG TAB.RAPDIS SL PRN (20:53)
--- NOTE | 2018-03-11 20:53 | NUR ---
PRN RObaxin & Zofran Patient complained of 4/10 generalized body aches & nausea. No episode of vomiting noted. PRN Robaxin & Zofran administered as ordered. Safety measures in place. Will monitor for effectiveness of medication.
--- NOTE | 2018-03-11 21:53 | NUR ---
PRN Reassessment Patient verbalized improved nausea & relief from pain after medication administration. Pt in bed and appears comfortable. Safety measures in place. Will continue to monitor.
--- NOTE | 2018-03-12 | NUR ---
Vitals refused/CIWA deferred Pt requested not to be woken up for vitals at this time. Pt asleep in bed and appears comfortable. Respiration even & unlabored. Safety measures in place. Will continue to monitor patient.
--- NOTE | 2018-03-12 07:04 | NUR ---
End of Shift Note: Patient is a 22 y.o male admitted on 03/07/18 for medically supervised withdrawal from ETOH. Pt completed his Ativan taper and is scheduled to be discharge today. Pt presented with anxiety, body aches & nausea during my shift. Pt received PRN Robaxin & Zofran and were effective. Last CIWA is 5. Pt stable at this time. Pt remains compliant with medications and treatment plan. Encourage pt to increase fluid intake. Fluid intake: 1125 ml, Voided 2x with no bowel movement. Pt slept for a total of 7 hours. All needs attended & met. Safety measures in place. Will endorse pt to day shift nurse.
--- NOTE | 2018-03-12 07:21 | NUR ---
START OF SHIFT Pt 22 y/o male admitted for polysubstance abuse / withdrawal. Pt received in room on bed with eyes closed resting, but easily arousable to name. Pt alert and oriented to name, place, and time. Perrla. Skin warm and dry to touch. Respirations even and unlabored. Pt appears disheveled. Encouraged to maintain hygiene. Height of bed elevated. Instructed pt keep height of bed on lowest position for safety, but pt insists on elevating height of bed. It was reported that pt slept for 7 hours last night. Last reported ciwa=5@0400. Pt completed a 5 day ativan taper. Side rails x2 up for safety. Call light within reach. Pt is scheduled to be discharged today.
[2018-03-12 08:00] VITALS: BP 102/64
[2018-03-12] MEDS: THIAMINE HCL 100 MG TABLET PO SCH (08:08)
[2018-03-12] MEDS: DESCOVY PO SCH (08:08)
[2018-03-12] MEDS: MULTIVITAMINS,THERAPEUTIC TABLET PO SCH (08:08)
[2018-03-12] MEDS: METHOCARBAMOL 750 MG TABLET PO PRN (08:08)
[2018-03-12] MEDS: FOLIC ACID 1 MG TABLET PO SCH (08:08)
--- NOTE | 2018-03-12 08:11 | NUR ---
PRN Pt states has body aches 6/10. Robaxin po prn per MD order given and tolerated well.
--- NOTE | 2018-03-12 09:11 | NUR ---
POLI SALCEDO Pt observed walking around the unit.
--- NOTE | 2018-03-12 11:08 | NUR ---
DISCHARGE Pt 22 y/o male admitted for polysubstance abuse/ withdrawal. Pt alert and oriented to name, place, and time. Perrla. Skin warm and dry touch. Respirations even and unlabored. No hand tremors noted. Pt completed a 5 day ativan taper. VS wnl. Pt denies any SI/HI. No pt belongings in cabinet or cassette noted. Pt home medications, prescriptions, and discharge papers packed in pt bag. No distress noted. Pt excited about being discharged. No sign/ symptoms of withdrawal noted. Pt discharged home.
== END 2018-03-12 11:05 | disposition home or self-care (01) | DRG 895 ==
LOC: SRC 12:37
PROVIDERS: ADMIT Internal Medicine; ATTEND Internal Medicine
PROC: HZ2ZZZZ Detoxification Services for Substance Abuse Treatment (ICD-10-PCS; principal; 2018-03-07)
PROC: HZ31ZZZ Individual Counseling for Substance Abuse Treatment, Behavioral (ICD-10-PCS; 2018-03-10)
DX: F10.230 Alcohol dependence with withdrawal, uncomplicated (principal); F33.2 Major depressive disorder, recurrent severe without psychotic features; I15.9 Secondary hypertension, unspecified; K70.10 Alcoholic hepatitis without ascites; F14.20 Cocaine dependence, uncomplicated; F12.10 Cannabis abuse, uncomplicated; Y90.1 Blood alcohol level of 20-39 mg/100 ml; F17.210 Nicotine dependence, cigarettes, uncomplicated; F43.10 Post-traumatic stress disorder, unspecified; Z59.0 Homelessness; Z91.5 Personal history of self-harm; Z83.3 Family history of diabetes mellitus; Z82.49 Family history of ischemic heart disease and other diseases of the circulatory system; Z81.1 Family history of alcohol abuse and dependence; J45.20 Mild intermittent asthma, uncomplicated; Z59.1 Inadequate housing; F15.10 Other stimulant abuse, uncomplicated
CPT/HCPCS: 36415; 80307; 80349; 80353; 83735; 85025; 86361; 86580; 86592; 86705; 86803; 87340; 87806; G0480; J2405; J3411; Q0162

== ENCOUNTER 2018-11-08 18:32 | Inpatient (IN) | payer BC, OTHER ==
[~2018-11-08] VITALS: Ht 180.3 cm; Wt 63.5 kg
[~2018-11-08 18:32] MED LIST changes: +CLON0.1T14 PO; +EMTR1TAB13 PO; -EMTR1TAB6 PO; -GABA-534 PO; -HYDR-3895 PO; +IBUP-1953 PO
[2018-11-13] MEDS ORDERED: MIRALAX 17 GM POWD.PACK PO PRN (21:00)
[2018-11-13] MEDS ORDERED: MAG HYDROX/AL HYDROX/SIMETH 30 ML LIQUID UDC PO PRN (21:00)
[2018-11-13] MEDS ORDERED: HYDROXYZINE PAMOATE 25 MG CAPSULE PO PRN (21:00)
[2018-11-13] MEDS ORDERED: LORAZEPAM 1 MG TABLET PO PRN (21:00)
[2018-11-13] MEDS ORDERED: LORAZEPAM 2 MG/1 ML VIAL IM PRN (21:00)
[2018-11-13] MEDS ORDERED: LOPERAMIDE HCL 2 MG CAPSULE PO PRN ×2 (21:00)
[2018-11-13] MEDS ORDERED: THIAMINE HCL 200 MG/2 ML VIAL IM ONE (21:00)
[2018-11-13] MEDS ORDERED: MAGNESIUM HYDROXIDE 30 ML LIQUID UDC PO PRN (21:00)
[2018-11-13] MEDS ORDERED: ONDANSETRON ODT 4 MG TAB.RAPDIS SL PRN (21:00)
[2018-11-13 21:40] LABS: *AMPHETAMINE, URINE NEGATIVE (NEGATIVE); *BARBITURATE, URINE NEGATIVE (NEGATIVE); *CANNABINOID, URINE NEGATIVE (NEGATIVE); *COCCAINE, URINE POSITIVE (NEGATIVE); *OPIATE, URINE NEGATIVE (NEGATIVE); *PHENCYCLIDINE SCREEN,URINE NEGATIVE (NEGATIVE)
[2018-11-13 22:57] LABS: BASOPHILS % (AUTO) 0.6 % (0.0-2.0); EOSINOPHILS # (AUTO) 0.2 K/uL (0.0-0.7); EOSINOPHILS % (AUTO) 2.9 % (0.0-7.0); HEMATOCRIT 47.2 % (36.7-47.1); LYMPHOCYTES # (AUTO) 2.1 K/uL (20.0-40.0); MEAN CORPUSCULAR HGB CONC 34 g/dL (32.5-36.3); MEAN CORPUSCULAR VOLUME 88.7 fL (73.0-96.2); MONOCYTES # (AUTO) 0.6 K/uL (2.0-10.0); MONOCYTES % (AUTO) 8.4 % (0.0-11.0); NEUTROPHILS # (AUTO) 4.6 K/uL (1.8-8.9); NEUTROPHILS % (AUTO) 60.1 % (38.5-71.5); PLATELET COUNT (AUTO) 369 K/uL (152-348); RED BLOOD CELL COUNT(AUTO) 5.33 MIL/uL (4.06-5.63); WHITE BLOOD COUNT (AUTO) 7.6 K/uL (3.6-10.2)
[2018-11-13 23:07] LABS: BILIRUBIN,TOTAL 0.3 mg/dL (0.2-1.0); CREATININE 1.1 mg/dL (0.6-1.3); MAGNESIUM 2.1 mg/dL (1.8-2.4); POTASSIUM 3.9 mmol/L (3.5-5.1)
[2018-11-13 23:16] LABS: THYROID STIMULATING HORMONE 0.213 mIU/mL (0.358-3.740)
[2018-11-14] VITALS (7 sets, daily range): BP systolic 112–150; BP diastolic 63–85
[2018-11-14] MEDS: IBUPROFEN 600 MG TABLET PO PRN (00:53)
[2018-11-14] MEDS: CLONIDINE HCL 0.1 MG TABLET PO PRN (00:53)
[2018-11-14] MEDS: diphenhydrAMINE 50 MG CAPSULE PO PRN ×2 (00:58→20:38)
[2018-11-14] MEDS ORDERED: 4 DAY TAPER OF LORAZEPAM -SERENITY PROTOCOL PO PRN (06:00)
[2018-11-14] MEDS: MULTIVITAMINS,THERAPEUTIC TABLET PO SCH (08:54)
[2018-11-14] MEDS: LORAZEPAM 1 MG TABLET PO SCH ×4 (08:54→20:37)
[2018-11-14] MEDS: FOLIC ACID 1 MG TABLET PO SCH (08:54)
[2018-11-14] MEDS: THIAMINE HCL 100 MG TABLET PO SCH (08:54)
[2018-11-14] MEDS ORDERED: PNEUMOCOCCAL 23-VAL P-SAC VAC 0.5 ML VIAL IM ONE (09:00)
[2018-11-14] MEDS ORDERED: TUBERCULIN,PURIF.PROT.DERIV. 5 TU/0.1 ML TEST ID ONE (09:00)
[2018-11-14] MEDS ORDERED: INFLUENZA VACCINE 2018-2019 0.5 ML DISP.SYRIN IM ONE (09:00)
[2018-11-14] MEDS: DESCOVY PO SCH (12:53)
[2018-11-14] MEDS: TIVICAY PO SCH (12:53)
[2018-11-14] MEDS: ACETAMINOPHEN 325 MG TABLET PO PRN (20:38)
[2018-11-15 08:00] VITALS: BP 149/93
[2018-11-15] MEDS ORDERED: PNEUMOCOCCAL 23-VAL P-SAC VAC 0.5 ML VIAL IM ONE (09:00)
[2018-11-15] MEDS ORDERED: INFLUENZA VACCINE 2018-2019 0.5 ML DISP.SYRIN IM ONE (09:00)
[2018-11-15] MEDS: TIVICAY PO SCH (09:05)
[2018-11-15] MEDS: DESCOVY PO SCH (09:06)
[2018-11-15] MEDS: LORAZEPAM 1 MG TABLET PO SCH ×3 (09:06→20:38)
[2018-11-15] MEDS: FOLIC ACID 1 MG TABLET PO SCH (09:06)
[2018-11-15] MEDS: THIAMINE HCL 100 MG TABLET PO SCH (09:06)
[2018-11-15] MEDS: MULTIVITAMINS,THERAPEUTIC TABLET PO SCH (09:06)
[2018-11-15 12:00] VITALS: BP 156/102
[2018-11-15 13:06] LABS: HEPATITIS B SURFACE AG Negative (Negative)
[2018-11-15 16:00] VITALS: BP 146/96
[2018-11-15 20:00] VITALS: BP 147/96
[2018-11-15] MEDS: ACETAMINOPHEN 325 MG TABLET PO PRN (20:38)
[2018-11-15] MEDS: TRAZODONE 50 MG TABLET PO PRN (20:38)
[2018-11-16 09:19] VITALS: BP 137/90
[2018-11-16] MEDS: MULTIVITAMINS,THERAPEUTIC TABLET PO SCH (09:21)
[2018-11-16] MEDS: FOLIC ACID 1 MG TABLET PO SCH (09:21)
[2018-11-16] MEDS: LORAZEPAM 1 MG TABLET PO SCH ×2 (09:21→20:03)
[2018-11-16] MEDS: THIAMINE HCL 100 MG TABLET PO SCH (09:21)
[2018-11-16] MEDS: DESCOVY PO SCH (09:23)
[2018-11-16] MEDS: TIVICAY PO SCH (09:23)
[2018-11-16] MEDS: CLONIDINE HCL 0.1 MG TABLET PO PRN (13:24)
[2018-11-16 13:31] VITALS: BP 137/105
[2018-11-16 14:24] VITALS: BP 142/90
[2018-11-16 17:12] VITALS: BP 146/86
[2018-11-16 20:00] VITALS: BP 129/84
[2018-11-16] MEDS: IBUPROFEN 600 MG TABLET PO PRN (20:03)
[2018-11-16] MEDS: TRAZODONE 50 MG TABLET PO PRN (20:05)
[2018-11-17] VITALS: BP 112/78
[2018-11-17 04:00] VITALS: BP 122/74
[2018-11-17 08:30] VITALS: BP 138/83
[2018-11-17] MEDS ORDERED: LORAZEPAM 1 MG TABLET PO SCH (09:00)
[2018-11-17] MEDS: MULTIVITAMINS,THERAPEUTIC TABLET PO SCH (09:04)
[2018-11-17] MEDS: THIAMINE HCL 100 MG TABLET PO SCH (09:04)
[2018-11-17] MEDS: TIVICAY PO SCH (09:05)
[2018-11-17] MEDS: FOLIC ACID 1 MG TABLET PO SCH (09:05)
[2018-11-17] MEDS: DESCOVY PO SCH (09:05)
[2018-11-17] MEDS: IBUPROFEN 600 MG TABLET PO PRN (12:20)
[2018-11-17 12:35] VITALS: BP 150/84
[2018-11-17 17:31] VITALS: BP 141/85
[2018-11-17 20:00] VITALS: BP 127/76
[2018-11-17] MEDS: TRAZODONE 50 MG TABLET PO PRN (20:45)
[2018-11-18 08:00] VITALS: BP 131/78
[2018-11-18] MEDS: FOLIC ACID 1 MG TABLET PO SCH (08:07)
[2018-11-18] MEDS: THIAMINE HCL 100 MG TABLET PO SCH (08:07)
[2018-11-18] MEDS: TIVICAY PO SCH (08:08)
[2018-11-18] MEDS: DESCOVY PO SCH (08:08)
[2018-11-18] MEDS: MULTIVITAMINS,THERAPEUTIC TABLET PO SCH (08:08)
== END 2018-11-18 09:35 | disposition other institution (70) | DRG 895 ==
LOC: SRC 11-13 20:13
PROVIDERS: ADMIT Family Medicine Addiction Medicine; ATTEND Internal Medicine Addiction Medicine
PROC: HZ2ZZZZ Detoxification Services for Substance Abuse Treatment (ICD-10-PCS; principal; 2018-11-13)
PROC: HZ41ZZZ Group Counseling for Substance Abuse Treatment, Behavioral (ICD-10-PCS; 2018-11-15)
PROC: HZ31ZZZ Individual Counseling for Substance Abuse Treatment, Behavioral (ICD-10-PCS; 2018-11-16)
DX: F10.230 Alcohol dependence with withdrawal, uncomplicated (principal); F12.129 Cannabis abuse with intoxication, unspecified; Y90.9 Presence of alcohol in blood, level not specified; F17.210 Nicotine dependence, cigarettes, uncomplicated; F11.10 Opioid abuse, uncomplicated; F14.10 Cocaine abuse, uncomplicated; F43.10 Post-traumatic stress disorder, unspecified; J45.909 Unspecified asthma, uncomplicated; Z83.3 Family history of diabetes mellitus; Z82.49 Family history of ischemic heart disease and other diseases of the circulatory system; Z91.5 Personal history of self-harm; Z86.39 Personal history of other endocrine, nutritional and metabolic disease; F32.9 Major depressive disorder, single episode, unspecified
CPT/HCPCS: 36415; 80307; 80353; 83690; 83735; 84443; 85025; 86580; 86592; 86705; 86803; 87340; 87806; 90686; 90732; G0480; Q0163